=== PATIENT | female | born 1960 | race Caucasian/White ===

== ENCOUNTER 2017-12-21 16:53 | Emergency (ER) | payer MEDICAID ==
[~2017-12-21] VITALS: Ht 167.6 cm; Wt 106.1 kg
[~2017-12-21 16:53] MED LIST: CEL20 PO; GABA-529 PO; MORP30TA59 PO
[2017-12-21 17:07] VITALS: BP_SYST 115
[2017-12-21] MEDS ORDERED: BACITRACIN 1 GM OINT TP ONE ×2 (17:56→18:00)
[2017-12-21 18:10] VITALS: BP_SYST 115
== END 2017-12-21 18:10 | disposition home or self-care (01) ==
LOC: SED 16:53
DX: S70.922A Unspecified superficial injury of left thigh, initial encounter (principal); Z79.899 Other long term (current) drug therapy; X58.XXXA Exposure to other specified factors, initial encounter; Y93.89 Activity, other specified; Y92.89 Other specified places as the place of occurrence of the external cause; Y99.8 Other external cause status
CPT/HCPCS: 99283

== ENCOUNTER 2018-07-02 17:20 | Inpatient (IN) | payer MEDICAID ==
[~2018-07-02] VITALS: Ht 167.6 cm; Wt 106.6 kg
[2018-07-02 17:25] VITALS: BP_SYST 116
--- NOTE | 2018-07-02 17:44 | NUR ---
Patient to ER bed 7 to gown for evaluation. Side rails up.
--- NOTE | 2018-07-02 17:45 | NUR ---
Pt wheeled into ED with c/o bilateral LE pain. Pt lupus,RA,CHF and bilateral LE swelling. [facility] with moderate assist. Pt's bilateral LE are weeping with foul odor. Pt's LE were wrapping w/ diapers. All coverings were removed.
--- NOTE | 2018-07-02 17:49 | NUR ---
Left message with SW for f/u.
[2018-07-02] MEDS ORDERED: VANCOMYCIN HCL 1,000 MG in NS 250 ML IV ONE (19:00)
[2018-07-02 19:37] LABS: CALCIUM 8.4 mg/dL (8.4-11.0); CREATININE 1.5 mg/dL (0.55-1.30); POTASSIUM 4.4 mmol/L (3.5-5.1)
[2018-07-02] MEDS ORDERED: VANCOMYCIN HCL 1000 MG/VIAL IV ONE (19:37)
[2018-07-02 19:46] LABS: ALBUMIN 2.8 g/dL (3.4-4.8); TOTAL BILIRUBIN 0.4 mg/dL (0.0-1.0)
--- NOTE | 2018-07-02 19:47 | NUR ---
Resting. Stephen le erythematous, swollen, malodorous. Vancomycin 1000 mg ivpb hung per order.
[2018-07-02 20:09] LABS: HEMATOCRIT 41.2 % (36-48); HEMOGLOBIN 12.9 g/dL (12.0-16.0); MEAN CORPUSCULAR HEMOGLOBIN 30 pg (27-31); MEAN CORPUSCULAR HGB CONC 31 % (32-36); MEAN CORPUSCULAR VOLUME 96 fL (79.0-98.0); PLATELET COUNT (AUTO) 203 K/uL (130-430); RED BLOOD CELL COUNT(AUTO) 4.29 MIL/uL (4.2-6.2); RED CELL DISTRIBUTION WIDTH 14.1 % (9.0-15.0); WHITE BLOOD COUNT (AUTO) 10.4 K/uL (4.8-10.8)
[2018-07-02 20:10] LABS: BASOPHILS # (AUTO) 0.1 K/uL (0.0-0.2); BASOPHILS % (AUTO) 0.5 % (0.0-2.0); EOSINOPHILS # (AUTO) 0.8 K/uL (0.0-0.4); EOSINOPHILS % (AUTO) 7.3 % (0.0-4.0); LYMPHOCYTES # (AUTO) 0.7 K/uL (1.0-5.5); LYMPHOCYTES % (AUTO) 7.1 % (20.5-51.5); MONOCYTES # (AUTO) 0.6 K/uL (0.0-1.0); NEUTROPHILS # (AUTO) 8.2 K/uL (1.8-7.7); NEUTROPHILS % (AUTO) 79.1 % (40.0-70.0)
--- NOTE | 2018-07-02 21:00 | NUR ---
Pt resting. No distress noted. at bedside.
--- NOTE | 2018-07-02 22:00 | NUR ---
Reminded that we still needed a urine specimen for ua. pt attempted earlier x2 via bedpan and was not able to urinate. in and out catheterization was explained and offered, pt refused. pt is not able to walk to toilet, nor to stand up to use bedside commode. also pt states she has no urge to urinate at this time. Will try again later.
--- NOTE | 2018-07-02 23:00 | NUR ---
Patient will be admitted to care of Dr Hooks. Admitted to unit. Will go to room . Belongings list completed. Summary report printed. Report will be given at bedside to AUGUST Tse.
--- NOTE | 2018-07-02 23:03 | NUR ---
ADMIT NOTE Received pt from ER to the floor with a diagnosis of BILATERAL LOWER EXTREMITIY CELLULITIS. Admission process initiated. patient oriented to pain management, safety and call light-teach back done.
[2018-07-02 23:17] VITALS: BP_SYST 121
[2018-07-02] MEDS ORDERED: ALBUTEROL SULFATE 0.083% 2.5 MG/3 ML VIAL.NEB INH PRN (23:30)
--- NOTE | 2018-07-02 23:40 | NUR ---
Ambulation Pt ambulated to the restroom with a walker and had a bowel movement. Gait very slow, but steady.
--- NOTE | 2018-07-03 | NUR ---
Back to Bed Pt ambulated back to bed with a walker and no acute distress noted. Saline lock in LAC is without any signs of infiltration. Call light is with pt and bed alarm is on. Pt was instructed to call for assistance as needed and pt verbalized understanding.
[2018-07-03] MEDS ORDERED: PIPERACILLIN/TAZOBACTAM 3.375 GM/VIAL (ZOSYN) IV ONE (00:36)
[2018-07-03] MEDS: PIPERACILLIN/TAZO 3.375/DEX-IS 50 ML IV SCH ×3 (00:49→06:18)
--- NOTE | 2018-07-03 02:00 | NUR ---
Rounds Pt is sleeping comfortably in bed without any distress noted. Call light is with pt and bed alarm is on.
--- NOTE | 2018-07-03 03:11 | NUR ---
CONSULTATION PAGED/CALLED Reason for Consultation: NIRMALA WOOD Person Who was Notified:LINDA Consulting Physician: CLARIBEL Wrapping Machine Helper Specialty: ID Ordering Physician: MELISSA
[2018-07-03 03:53] VITALS: BP_SYST 121
--- NOTE | 2018-07-03 04:00 | NUR ---
Rounds Pt is sleeping quietly in bed. No acute distress noted. Call light is with pt and bed alarm is on.
--- NOTE | 2018-07-03 06:40 | NUR ---
Closing Note Pt is awake and resting quietly in bed. All pt's needs were attended to. No fall or injury noted this shift. Will endorse to day shift nurse.
[2018-07-03 07:02] LABS: BILIRUBIN,URINE NEGATIVE (NEGATIVE); CLARITY/URINE SLIGHTLY HAZY (CLEAR); COLOR,URINE YELLOW (YELLOW); GLUCOSE,URINE NEGATIVE (NEGATIVE); KETONES,URINE NEGATIVE (NEGATIVE); PH,URINE 5.5 (5.0-8.0); PROTEIN URINE 1+ (NEGATIVE)
[2018-07-03 07:03] LABS: BLOOD, URINE 2+ (NEGATIVE); LEUKOCYTE ESTERASE ,URINE NEGATIVE (NEGATIVE); NITRITE, URINE NEGATIVE (NEGATIVE); UROBILINOGEN,URINE 0.2 (0.2-1.0)
[2018-07-03 07:10] LABS: BASOPHILS % (AUTO) 0.3 % (0.0-2.0); MONOCYTES # (AUTO) 0.8 K/uL (0.0-1.0); RED BLOOD CELL COUNT(AUTO) 4.03 MIL/uL (4.2-6.2); RED CELL DISTRIBUTION WIDTH 14.3 % (9.0-15.0)
[2018-07-03 07:25] LABS: EOSINOPHILS # (AUTO) 0.4 K/uL (0.0-0.4); EOSINOPHILS % (AUTO) 3.6 % (0.0-4.0); HEMATOCRIT 38.7 % (36-48); HEMOGLOBIN 12.3 g/dL (12.0-16.0); LYMPHOCYTES # (AUTO) 0.6 K/uL (1.0-5.5); LYMPHOCYTES % (AUTO) 5.7 % (20.5-51.5); MEAN CORPUSCULAR HEMOGLOBIN 31 pg (27-31); MEAN CORPUSCULAR HGB CONC 32 % (32-36); MEAN CORPUSCULAR VOLUME 96 fL (79.0-98.0); MONOCYTES % (AUTO) 7.5 % (1.7-9.3); NEUTROPHILS # (AUTO) 8.7 K/uL (1.8-7.7); NEUTROPHILS % (AUTO) 82.9 % (40.0-70.0); WHITE BLOOD COUNT (AUTO) 10.5 K/uL (4.8-10.8)
[2018-07-03 07:32] LABS: ALBUMIN 2.3 g/dL (3.4-4.8); CALCIUM 8.3 mg/dL (8.4-11.0); CREATININE 1.39 mg/dL (0.55-1.30); POTASSIUM 4.1 mmol/L (3.5-5.1); TOTAL BILIRUBIN 0.3 mg/dL (0.0-1.0)
[2018-07-03 07:38] LABS: PLATELET COUNT (AUTO) 187 K/uL (130-430)
--- NOTE | 2018-07-03 07:40 | NUR ---
Opening Note: Patient laying in bed resting. Patient denies pain and discomfort. Breathing is even and unlabored with no distress noted. IV patent and intact. Bed in lowest position, wheels locked, side rails x3, bed alarm activated and call light within reach. Will continue to monitor.
[2018-07-03 08:00] LABS: BACTERIA,URINE MODERATE /HPF (None Seen); WBC,URINE 0-3 /HPF (0-3); YEAST,URINE None Seen /HPF (None Seen)
[2018-07-03 08:01] LABS: COARSE GRANULAR CASTS,URINE 0-10 /LPF (None Seen)
[2018-07-03 08:02] LABS: OTHER CASTS, URINE STARCH GRANULES /LPF (None Seen)
[2018-07-03 08:03] LABS: MUCUS,URINE None Seen /LPF (None Seen)
[2018-07-03 08:16] VITALS: BP_SYST 114
[2018-07-03] MEDS: GABAPENTIN 100 MG CAPSULE PO SCH ×2 (08:17→22:03)
[2018-07-03] MEDS: CITALOPRAM HYDROBROMIDE 20 MG TABLET PO SCH (08:19)
[2018-07-03] MEDS: MORPHINE SULFATE 30 MG TABLET.SA PO PRN ×2 (08:21→19:27)
[2018-07-03] MEDS ORDERED: ENOXAPARIN SODIUM 40 MG/0.4 ML SYRINGE SUBCUT SCH (09:00)
--- NOTE | 2018-07-03 10:06 | NUR ---
Rounding: Patient laying in bed resting. No distress noted. Will continue to monitor.
--- NOTE | 2018-07-03 12:35 | NUR ---
Rounding: Patient laying in bed resting. Patient denies pain and discomfort. Breathing is even and unlabored with no distress noted. Morning medications tolerated well. Safety precautions in place. No needs at this time. Will continue to monitor.
[2018-07-03 12:40] VITALS: BP_SYST 115
[2018-07-03] MEDS: FLUCONAZOLE 200 mg/ NS 100 ML IV SCH (12:49)
[2018-07-03] MEDS: ACETAMINOPHEN 325 MG TABLET PO PRN (12:54)
--- NOTE | 2018-07-03 13:45 | NUR ---
IV RE-INSERTION: Complaining of pain to IV site. Restarted on right forearm. Successful after 1 attempts. Will observe for any signs of infiltration.
[2018-07-03] MEDS: AMPICILLIN SODIUM/SULBACTAM NA 1.5 GM in NS 50 ML IV SCH ×3 (13:48→23:47)
[2018-07-03] MEDS ORDERED: BALSAM PERU/CASTOR OIL 60 GM OINT...G. TP ONE (16:00)
--- NOTE | 2018-07-03 16:03 | NUR ---
WOUND EVALUATION: Wound Consult received from Dr. Hooks. Thank you, Dr. Hooks, for the consult. Patient received in a Karla Bed with an IsoFlex EDA mattress, low air loss therapy was initiated awake, alert, and oriented. Patient is unable to turn independently. Rene Score is a 20. Past Medical History: Hypertension, CHF, hypothyroidism, severe arthritis, bilateral lower extremity cell is no ulitis for about five years. Recent Labs: WBC 10.5, RBC 4.03, hemoglobin 12.3, hematocrit 38.7, BUNs 18, creatinine 1.39, GFR 42, glucose 113, calcium 8.3, alkaline phosphatase 37, albumin 2.3. Microbiology: Wound culture results 2 in progress. Urine culture results in progress. Intrinsic factors that delay wound healing: Hypoalbuminemia. Extrinsic factors that delay wound healing: Decreased mobility. Wound Assessment: 1. Right lateral mid calf: Venous insufficiency ulcer, present on admission. Wound bed has 90% pink tissue, 10% yellow tissue. No odor, no drainage. Periwound and surrounding tissue is erythematous. Right calf and foot have 2+ nonpitting edema, erythema, and calor (entire extremity has calor). Wound measures 1.6 cm x 1.2 cm. 2. Left anterior distal uriostegui: Venous insufficiency ulcer, present on admission. Wound bed has 5% black tissue, 15% red tissue, 80% yellow tissue. No odor, no drainage. Periwound and surrounding tissue is erythematous. Wound measures 2.5 cm x 3.3 cm. 3. Left lateral distal lower extremity: Venous insufficiency ulcers (3), present on admission. Wound bed has 100% yellow tissue. No odor, no drainage. Periwound and surrounding tissue is erythematous. Left calf and foot have 3+ nonpitting edema, erythema, and calor (warmer than right lower extremity) (entire extremity has calor). Entire site measures 5.0 cm x 4.0 cm. 4. Left lateral dorsal foot: Two fissures, present on admission. Site has 100% yellow tissue in valleys of fissures. No odor, no drainage. Periwound and surrounding tissue is erythematous. Wound measures 5.0 cm x 4.0 cm. 5. Left dorsal foot: Venous insufficiency ulcer, present on admission. Wound bed has 5% black tissue, 95% yellow tissue. No odor, no drainage. Periwound and surrounding tissue is erythematous. Wound measures 2.0 cm x 5.2 cm. 6. Left medial malleolus: Venous insufficiency ulcer, present on admission. Wound bed has about 80% yellow tissue, 20% pink epidermal budding. No odor, no drainage. Periwound and surrounding tissue is erythematous. Wound measures 4.0 cm x 7.0 cm. Recommend: For Lower Extremities/Feet: Cleanse wounds with normal saline. Place moisture barrier cream onto silvana-wound. Apply Venelex ointment onto wound bed. Cover with nonadhesive foam dressing. Wrap with Kings wrap (not too loose, not tight). Perform wound care daily, and as needed for dressing soiling or dislodgement. For Toes: Cleanse in between toes with normal saline. Dry. Apply oil emotion dressings cut to size in between toes of right foot. Apply dry gauze in between toes of left foot. Perform site care daily, and as needed for dressing soiling or dislodgement. Also recommend: Encourage and assist patient as needed with repositioning every 2 hours with pillow support, and off-load pressure areas with pillows for pressure re-distribution. Offload, elevate and float bilateral heels with multiple pillows. Perform skin care and monitor skin integrity Q shift. Use moisture barrier cream on buttocks and other moisture susceptible areas QID and as needed for soiling. Maintain patient on low air-loss therapy. Recommend arterial and venous Dopplers to bilateral lower extremities with an PATEL to rule out arterial insufficiency, and confirmed venous insufficiency.
[2018-07-03 16:17] VITALS: BP_SYST 122
--- NOTE | 2018-07-03 16:29 | NUR ---
Wound care: Wound care one to bilateral lower extremities. Washed with normal saline. Patted dry. Applied Venelex to wound beds. Applied z-gaurd to periwound. Covered with no adherent foam and wrapped with Kings wrap. Also applied oil emulsion between toes to the right foot and gauze between toes to the left foot.
--- NOTE | 2018-07-03 18:29 | NUR ---
Closing Note: Patient laying in bed resting. Patient denies pain and discomfort. Breathing is even and unlabored with no distress noted. IV patent and intact. Bed in lowest position, wheels locked, side rails x3, bed alarm activated and call light within reach. All needs met. Will endorse plan of care to NOC, nurse.
--- NOTE | 2018-07-03 19:38 | NUR ---
Initial PM Note Pt is fully awake, alert and oriented x4. No acute distress noted at this time. Saline lock in LFA is without any signs of infiltration. Fall and safety precautions are in place. Pt was instructed to call for assistance as needed and pt verbalized understanding. Call light is with pt and bed alarm is on. Will continue to monitor pt.
[2018-07-03 20:00] VITALS: BP_SYST 120
[2018-07-03] MEDS ORDERED: COMMUNICATION ORDER XX ONE (21:15)
[2018-07-03] MEDS ORDERED: HYDROcodone/ACETAMIN 10-325 MG TAB PO SCH (21:30)
[2018-07-03] MEDS: ONDANSETRON HCL 4 MG/2 ML VIAL IVP PRN (22:03)
--- NOTE | 2018-07-03 22:03 | NUR ---
Pain/Nausea Pt stated she has kidney stones on the right and the pain is making her nauseated. Pt stated MS Contin tablet is not effective for the pain. [place] 10/325 1 tablet po and Zofran 4mg IV were given as ordered by Dr. Hooks with relief. No emesis noted. Fall and safety precautions are in place.
--- NOTE | 2018-07-04 | NUR ---
Rounds Pt is resting comfortably in bed. Call light is with pt and bed alarm is on.
[2018-07-04 00:38] VITALS: BP_SYST 137
--- NOTE | 2018-07-04 02:00 | NUR ---
Rounds Pt is sleeping comfortably in bed without any distress noted. Call light is with pt and bed alarm is on.
--- NOTE | 2018-07-04 04:00 | NUR ---
Rounds Pt continues to sleep without any distress noted. Saline lock is intact in left forearm. Call light is with pt and bed alarm is on.
[2018-07-04] MEDS: AMPICILLIN SODIUM/SULBACTAM NA 1.5 GM in NS 50 ML IV SCH ×4 (06:12→23:42)
--- NOTE | 2018-07-04 06:30 | NUR ---
Closing Note Pt is awake and resting quietly in bed. All pt's needs were attended to. No fall or injury noted this shift. Saline lock in LFA is without any signs of infiltration. Dressings are intact on BLE. Will endorse to day shift nurse.
[2018-07-04 08:00] VITALS: BP_SYST 123; BP_SYST 130
--- NOTE | 2018-07-04 08:15 | NUR ---
OPENING NOTE: MORNING REPORT WAS TAKEN FROM ADULT EDUCATION TEACHER NURSE. PATIENT SITTING IN BED WATCHING TV. PATIENT IS ALERT AND ORIENTED X4. PATIENT COMPLAINING OF NAUSEA. PATIENT NOT VOMITING. PATIENT NOT COMPLAINING OF SHORTNESS OF BREATH. PATIENT ON ROOM AIR. PATIENT NOT COMPLAINING OF CONSTIPATION. GAVE PATIENT MORNING MEDICATIONS ALONG WITH ZOFRAN. PATIENT'S DRESSINGS ARE INTACT. PATIENT ABLE TO MOVE TOES, CAP REFIL <3 SEC, PULSES PRESENT. BED ALARM IS ON AND CALL LIGHT IS IN REACH. WILL CONTINUE TO MONITOR.
[2018-07-04] MEDS: CITALOPRAM HYDROBROMIDE 20 MG TABLET PO SCH (08:28)
[2018-07-04] MEDS: ONDANSETRON HCL 4 MG/2 ML VIAL IVP PRN (08:28)
[2018-07-04] MEDS: GABAPENTIN 100 MG CAPSULE PO SCH ×2 (08:28→20:45)
--- NOTE | 2018-07-04 09:38 | NUR ---
Nutrition Update Rene Scale 18 noted. Pt admitted for bilateral lower leg cellulitis. Diet: regular BMI: 37.9 kg/m2 RD to follow per nutrition care standards.
[2018-07-04] MEDS: FLUCONAZOLE 200 mg/ NS 100 ML IV SCH (11:26)
[2018-07-04] MEDS: ACETAMINOPHEN 325 MG TABLET PO PRN (11:27)
--- NOTE | 2018-07-04 11:40 | NUR ---
NOTE: [facility] ANTIBIOTICS FOR PATIENT. PATIENT COMPLAINING OF PAIN IN LEFT ABD, "KIDNEY STONES" PATIENT SAYS. GAVE TYLENOL. VISITOR AT BEDSIDE. PATIENT COMPLAINING OF NAUSEA. ZOFRAN NOT DUE YET. WILL GET GINGERALE FOR PATIENT.
[2018-07-04 12:00] VITALS: BP_SYST 127
[2018-07-04] MEDS: MORPHINE SULFATE 30 MG TABLET.SA PO PRN ×2 (13:18→20:46)
--- NOTE | 2018-07-04 14:06 | NUR ---
ATTENDING MD DR GOETZ WAS PAGED, RE: PAIN MED FOR LEG PAIN. SPOKE TO JED
--- NOTE | 2018-07-04 14:34 | NUR ---
DR GOETZ HERE. ASKED FOR PAIN MEDICATION FOR PATIENT. SAID SERGEY [id number] SAID HE WOULD PUT IT IN.
--- NOTE | 2018-07-04 15:09 | NUR ---
ATTENDING MD DR GOETZ WAS PAGED AGAIN, RE: LEG PAIN MED. SPOKE TO FELA
--- NOTE | 2018-07-04 15:10 | NUR ---
DR GOETZ CALLED BACK AND ORDERED NORCO 5-325 Q6 PRN FOR PATIENT.
[2018-07-04] MEDS ORDERED: HYDROcodone/ACETAMIN 5-325 MG TAB (NORCO/ VICODIN) PO PRN (15:15)
--- NOTE | 2018-07-04 15:23 | NUR ---
Dietitian Recommendations * Recommend cardiac diet, no lactose, Glucerna BID, Rudy BID (oral supplements provide an additional 620 kcal/day and 25 gm protein/day) AFIA, RD Please refer to Nutrition Assessment for details. Addendum: 07/04/18 at [address] CORRECTION: Dietitian Recommendations * Recommend cardiac diet, no lactose, Ensure Enlive BID, Rudy BID (oral supplements provide an additional 880 kcal/day and 45 gm protein/day) LP, RD
[2018-07-04] MEDS: BALSAM PERU/CASTOR OIL 60 GM OINT...G. TP SCH (16:37)
[2018-07-04 16:52] VITALS: BP_SYST 105
--- NOTE | 2018-07-04 17:05 | NUR ---
MD CALLED CALLED DR GOETZ FOR ECHO ORDER BECAUSE PT DID NOT HAVE ANY ECHOCARDIOGRAM IN LAST12 MONTH PER PT.RECEIVED ORDER . CARRIED OUT
--- NOTE | 2018-07-04 17:22 | NUR ---
JUST FINISHED DOING WOUND CARE FOR PATIENT. CLEANED ALL WOUNDS WITH NS AND PADDED DRY. APPLIED VENELEX TO WOUND BED. APPLIED MOISTURE BARRIER CREAM AROUND. APPLIED NON ADHERENT DRESSING AND WRAPPED. APPLIED GAUZE IN BETWEEN TOES ON LEFT AND OIL EVERSION DRESSING BETWEEN TOES ON RIGHT. TRIED TO GET PATIENT TO TURN ON SIDE BUT PATIENT REFUSED. ASKED IF HER BUTT FEELS NUMB OR TINGLING AND SAID NO.
--- NOTE | 2018-07-04 18:55 | NUR ---
CLOSING NOTE: PATIENT SITTING IN BED TALKING TO VISITOR AT BEDSIDE. PATIENT SAID HER PAIN IS DOING BETTER. [facility]G ANTIBIOTICS. PATIENT IS ON ROOM AIR NOT COMPLAINING OF SHORTNESS OF BREATH. DRESSINGS ARE INTACT. LEGS ARE ELEVATED. BED ALARM IS ON AND CALL LIGHT IS IN REACH. WILL CONTINUE TO MONITOR AND GIVE REPORT TO NIGHT NURSE.
--- NOTE | 2018-07-04 19:50 | NUR ---
Initial Note Received patient awake, alert and oriented with caregiver at the bedside. No SOB noted. Denies any n/v or chest pain at this time. Feels pain on her BLE and will need pain medication later. Patient has scoliosis and she tends to flex her neck forward all the time. Had a BM yesterday. Dressing on BLE CDI. Saline lock patent and intact. Patient able to walk with a walker and assist. Blood thinner on hold. Care and monitoring will be provided per protocol. Needs attended. Call light within reach. Bed alarm on and at lowest position at all times. Kept warm and comfortable.
[2018-07-04 20:00] VITALS: BP_SYST 99
--- NOTE | 2018-07-04 20:45 | NUR ---
RN Note Due meds given along with pain medication as requested. Will continue to monitor. Needs attended. Kept warm and comfortable.
--- NOTE | 2018-07-04 23:30 | NUR ---
RN Note Sleeping but easily arousable. No complaints at this time. Repositioned. IV antibiotic given. Kept warm and comfortable.
[2018-07-05] VITALS: BP_SYST 119
--- NOTE | 2018-07-05 02:00 | NUR ---
RN Note Asleep, moves occasionally. No distress noted.
--- NOTE | 2018-07-05 04:00 | NUR ---
RN Note Patient awake and alert. Assisted patient to the bathroom with a walker. Slow but steady gait. Feels pain when she put weight on her left leg. Reinforced dressing on BLE. Bed alarm turned on. LALM. Kept warm and comfortable.
[2018-07-05] MEDS: AMPICILLIN SODIUM/SULBACTAM NA 1.5 GM in NS 50 ML IV SCH ×4 (05:05→23:37)
[2018-07-05] MEDS: MORPHINE SULFATE 30 MG TABLET.SA PO PRN ×2 (05:10→14:48)
--- NOTE | 2018-07-05 06:15 | NUR ---
End Note Afebrile. VS stable. No changes from previous assessment. Denies any SOB or n/v throughout the night. Medicated for BLE pain twice all night. Able to sleep last night. Assisted to the bathroom with a walker with a steady gait. IV antibiotic given. For 2D Echo today. Dressing on BLE CDI. Fall and bleeding precaution observed. Needs attended. Care and monitoring provided per protocol. Call light within reach. Bed alarm on and at lowest position at all times. Kept warm and comfortable.
--- NOTE | 2018-07-05 07:55 | NUR ---
OPENING NOTE: MORNING REPORT WAS TAKEN FROM LIBRARIAN SPECIAL COLLECTIONS NURSE. PATIENT SITTING IN BED EATING BREAKFAST. PATIENT IS ALERT AND ORIENTED X4. PATIENT NOT COMPLAINING OF NAUSEA OR VOMITING. PATIENT NOT COMPLAINING OF SHORTNESS OF BREATH. PATIENT ON ROOM AIR. PATIENT NOT COMPLAINING OF CONSTIPATION. IV IS SALINE LOCKED. PATIENT'S DRESSINGS ARE INTACT. PATIENT ABLE TO MOVE TOES, CAP REFIL <3 SEC, ABLE TO FEEL TOUCH, PULSES PRESENT BUT FAINT. BED ALARM IS ON AND CALL LIGHT IS IN REACH. WILL CONTINUE TO MONITOR.
[2018-07-05 08:00] VITALS: BP_SYST 104
[2018-07-05 08:10] VITALS: BP_SYST 119
[2018-07-05] MEDS: GABAPENTIN 100 MG CAPSULE PO SCH ×2 (09:12→20:57)
[2018-07-05] MEDS: CITALOPRAM HYDROBROMIDE 20 MG TABLET PO SCH (09:12)
[2018-07-05] MEDS: FLUCONAZOLE 200 mg/ NS 100 ML IV SCH (09:13)
--- NOTE | 2018-07-05 10:40 | NUR ---
WENT TO CHECK IN ON PATIENT BECAUSE SHE CALLED. PATIENT STARTED CRYING SAYING SHE DIDNT WANT TO GO TO SNF BECAUSE THAT WHAT THE DR TOLD HER SHE WAS GOING TO GO. PATIENT SAID SHE IS AFRAID OF THEM. TRIED TO COMFORT PATIENT. WILL FOLLOW UP WITH DR TO SEE WHAT HIS PLAN IS FOR PATIENT.
--- NOTE | 2018-07-05 11:44 | NUR ---
CM DC Planning: Noted Nsg note regarding patient being tearful about transfer to SNF. Spoke with nurse/Cielo about frequency of abx; reviewed Dr. Gatica/ID note about duration of IV abx who documented Pt able to transition to PO abx, Augmentin & Diflucan; today is day 3 of IV abx, unable to have q 6 hr IV abx at home with PIV; CM and/vendor relationship manager/Cielo to f/up with Dr. Gatica regarding duration of IV antibiotic. Spoke with patient about DC to SNF concerns. Pt stated her boyfriend is [employer] worker and will help with wound care at home. Pt educated about IV abx and, that CM and/vendor relationship manager will f/up with ID /Dr. Gatica about duration of IV Unysyn. Pt stated if SNF could be located near her home, she would be willing to stay for 2-4 days per ID recommendations. Late Entry for 11 a.m.: FITO left message for Deepak Beavers CM/Kathy: [phone] regarding status of SNF placement.] FITO will f/up with Kathy regarding above IV abx duration and possibility of Pt DC to home with HH request. FITO will call back to Kathy or other ins CM if no call back by 1300 to 1400.
[2018-07-05 12:26] VITALS: BP_SYST 101
--- NOTE | 2018-07-05 12:44 | NUR ---
DISCONNECTED PATIENT FROM ANTIBIOTICS. PATIENT DIDNT WANT TO BE TURNED AT MOMENT BECAUSE SON AT BEDSIDE. WILL CONTINUE TO MONITOR.
--- NOTE | 2018-07-05 15:23 | NUR ---
CHF PROTOCOL PCP APPOINTMENT PRIOR TO DISCHARGE POSSIBLE DISCHARGE TODAY, MADE APPOINTMENT TO SEE DR WATTS PCP OF PATIENT WITHIN 7 DAYS PRIOR TO DISCHARGE, SPOKE TO EPIFANIO AT DR WATTS'S OFFICE, PATIENT APPOINTMENT WILL BE ON JULY 12, 2018 AT 10;30 AM. OFFICE IS LOCATED AT [address] [place] [address], [address] PATIENT MADE AWARE.
--- NOTE | 2018-07-05 15:41 | NUR ---
PAGED DR. SANFORD AND HE CALLED BACK. SAID PATIENT CAN LEAVE HOME ON PO AUGMENTIN AND DIFLUCAN ANTIBIOTICS FOR 7 DAYS.
[2018-07-05 16:46] VITALS: BP_SYST 97
--- NOTE | 2018-07-05 16:52 | NUR ---
OFFERED PATIENT A BED BATH PATIENT REFUSED PATIENT STATED THAT SHE DID NOT WONT A BATHE AND SHE WAS A LITTLE TRIED .INFORMED PATIENT TO LET US KNOW WHEN SHE WAS READY TO BATHE .OFFERED PATIENT AGAIN THROUGHOUT SHIFT PATIENT CONTINUED TO REFUSED .RN NOTIFIED
--- NOTE | 2018-07-05 17:51 | NUR ---
MD JONES CALLED [facility] AT SPOKE WITH DR.JANDIAL DACOSTA RAJNISH MEDICARE SPECIALIST.
--- NOTE | 2018-07-05 18:07 | NUR ---
SPOKE TO DR. SMILEY. TOLD DR THAT DR GOETZ ORDERED DC TO SNF BUT DOESNT WANT TO GO. DR SANFORD SAID OKAY TO BE DC PO ANTIBIOTICS BUT NEED PRESCRIPTION. ALSO THAT PATIENT HAD NAUSEA, VOMITING, AND ABDOMINAL PAIN WHEN ADMITTED. DR SAID PATIENT NOT GOING HOME TODAY. DR ORDERED GI CONSULT WITH DR KOLB. SAID PATIENT ANXIOUS AND ASKED FOR XANAX. DR ORDERED 0.25 MG Q8H PRN.
[2018-07-05] MEDS ORDERED: ALPRAZolam 0.25 MG TABLET PO PRN (18:15)
--- NOTE | 2018-07-05 18:18 | NUR ---
CONSULTATION CALLED REASON FOR CONSULTATION:ABDOMINAL PAIN WAS CONSULT CALLED?Y PERSON WHO WAS NOTIFIED:PRANEETH CONSULTING PHYSICIAN:NICOLE DEL CID (USMAN ROE SPEECH PATHOLOGIST) AIRPORT OPERATIONS CREW MEMBER SPECIALTY:GI AIRPORT OPERATIONS CREW MEMBER PHONE NUMBER:[phone] ORDERING PHYSICIAN:BK VILLANUEVA
[2018-07-05] MEDS ORDERED: ALPRAZolam 0.25 MG TABLET ONE (18:44)
--- NOTE | 2018-07-05 18:54 | NUR ---
CLOSING NOTE: PATIENT STILL SITTING IN CHAIR AT SIDE OF BED. UPDATED PATIENT AND BOYFRIEND ON PLAN OF CARE. PATIENT GOT A LITTLE SAD AND MORE ANXIOUS BECAUSE SHE HAD TO STAY AFTER ALL. GAVE PATIENT XANAX BECAUSE SHE SAID SHE REALLY NEEDED IT NOW. GOT PATIENT BLANKETS FOR BED. WILL CONTINUE TO MONITOR AND GIVE REPORT TO SHAFT REPAIRER NURSE. Addendum: 07/05/18 at 1906 by Cielo Leiva RN DID NOT HAVE TIME TO DO WOUND DRESSINGS DURING SHIFT. ENDORSED TO NIGHT NURSE TO DO.
--- NOTE | 2018-07-05 19:05 | NUR ---
OPENING NOTES RECEIVED PATIENT SITTING IN CHAIR. AAO X4. DENIES PAIN AT THIS TIME. BREATHING UNLABORED ON ROOM AIR. PLAN OF CARE REVIEWED WITH PATIENT. INSTRUCTED PATIENT TO USE CALL LIGHT IF SHE IS READY TO GO BACK TO BED. PLACED CALL LIGHT WITHIN EASY REACH.
--- NOTE | 2018-07-05 20:34 | NUR ---
BACK TO BED PATIENT ASSISTED BY RN AND OIL LEASE OPERATOR SAFELY BACK TO BED. PLACED CALL LIGHT WITHIN EASY REACH. CALL LIGHT WITHIN REACH. SIDERAILS UP X2. BED IN LOWEST LOCKED POSITION.
--- NOTE | 2018-07-05 20:58 | NUR ---
MED PASS DUE MEDICATION GIVEN AND TOLERATED.
--- NOTE | 2018-07-05 22:40 | NUR ---
WOUND CARE WOUND CARE DONE ORDERED. DRESSING CHANGED TO JONA LEG WOUND
[2018-07-05 23:00] VITALS: BP_SYST 104
--- NOTE | 2018-07-05 23:16 | NUR ---
CLOSING NOTES ENDORSED PATIENT CARE TO CHEL KOCH.
--- NOTE | 2018-07-05 23:25 | NUR ---
[place] of care: Received handoff report from AUGUST Kuhn. Patient is awake in bed, does not show any signs or symptoms of acute distress. Dressings to both legs noted. IV noted to patient's left arm, site is patent and benign. Safety and fall precautions in place. Will continue monitoring.
--- NOTE | 2018-07-06 00:03 | NUR ---
Rounds: Patient is sleeping, no acute distress noted. Safety and fall precautions in place. Will continue monitoring.
--- NOTE | 2018-07-06 02:09 | NUR ---
Rounds: Patient is in bed asleep, no signs or symptoms of acute distress noted. Safety and fall precautions in place. Call light remains with patient. Will continue to monitor.
--- NOTE | 2018-07-06 05:00 | NUR ---
ASSUMPTION OF CARE PATIENT RECEIVED FROM AUGUST MILLIGAN AT THIS TIME, REPORT GIVEN AT BEDSIDE. AT THIS TIME, PATIENT IS SLEEPING, STABLE, NO SIGNS OF ACUTE DISTRESS. CALL LIGHT IS WITHIN REACH. BED IS LOCKED, ALARMED, AND AT THE LOWEST LEVEL. FALL AND SAFETY PRECAUTIONS ARE IN PLACE. WILL CONTINUE TO MONITOR FOR CHANGES.
[2018-07-06] MEDS: AMPICILLIN SODIUM/SULBACTAM NA 1.5 GM in NS 50 ML IV SCH ×2 (06:43→11:41)
--- NOTE | 2018-07-06 06:46 | NUR ---
CLOSING NOTE AT THIS TIME, PATIENT IS RESTING IN BED, STABLE, NO SIGNS OF RESPIRATORY DISTRESS. CALL LIGHT WITHIN REACH. PATIENT VERBALIZES NO PAIN. FALL AND SAFETY PRECAUTIONS ARE IN PLACE. BED IS LOCKED, ALARMED, AND AT THE LOWEST LEVEL. WILL CONTINUE TO MONITOR UNTIL SHIFT REPORT IS GIVEN AT BEDSIDE TO AM NURSE.
--- NOTE | 2018-07-06 07:40 | NUR ---
Opening Note: Patient laying in bed resting. Patient denies pain and discomfort. Breathing is even and unlabored with no distress noted. IV patent and intact. Patient complains of diarrhea. Will inform MD. Safety precautions in place; bed in lowest position, wheels locked, side rails x3, bed alarm activated and call light within reach. Will continue to monitor.
[2018-07-06 08:00] VITALS: BP_SYST 106
[2018-07-06] MEDS: FLUCONAZOLE 200 mg/ NS 100 ML IV SCH (08:14)
[2018-07-06] MEDS: CITALOPRAM HYDROBROMIDE 20 MG TABLET PO SCH (08:14)
[2018-07-06] MEDS: GABAPENTIN 100 MG CAPSULE PO SCH (08:15)
[2018-07-06] MEDS: BALSAM PERU/CASTOR OIL 60 GM OINT...G. TP SCH (08:16)
[2018-07-06] MEDS ORDERED: PANTOPRAZOLE SODIUM 40 MG TAB PO ONE (09:45)
[2018-07-06] MEDS ORDERED: LACTOBACILLUS RHAMNOSUS GG 1 CAP CAPSULE PO ONE (09:45)
[2018-07-06] MEDS: MORPHINE SULFATE 30 MG TABLET.SA PO PRN (10:11)
--- NOTE | 2018-07-06 10:12 | NUR ---
Rounds: Pt sitting up in bed. PRN MS Contin given for severe pain. New order for Culturelle and Protonix given per MD order, see EMR. Bed rails up, call light in reach.
[2018-07-06 11:35] VITALS: BP_SYST 119
--- NOTE | 2018-07-06 12:13 | NUR ---
Rounds: Patient laying in bed resting. Patient denies pain and discomfort. Breathing is even and unlabored with no distress noted. Morning medications tolerated well. Safety precautions in place and call light within reach. No needs at this time. Will continue to monitor.
[2018-07-06] MEDS ORDERED: DIF100 PO (14:09)
[2018-07-06] MEDS ORDERED: AMOX-423 PO (14:09)
[2018-07-06] MEDS ORDERED: ONDA4TAB5 SL (14:10)
[2018-07-06 14:18] VITALS: BP_SYST 119
--- NOTE | 2018-07-06 14:30 | NUR ---
Wound care: Wound care done to bilateral lower extremities per wound care guidelines. Patient tolerated well.
--- NOTE | 2018-07-06 15:15 | NUR ---
D/C Patient Patient given medication reconciliation form and D/C instructions. Exit Care provided. Patient verbalized understanding. MD discussed with patient the results and treatment provided. Patient in stable condition, ID band removed. IV catheter removed, intact and dressing applied, no active bleeding. Rx of meds given. Patient educated on pain management. All belongings sent with patient.
--- NOTE | 2018-07-06 16:21 | NUR ---
CM DC PLANNING: Approx 1300: Call to Marivel PAYTON/Allie at [phone] who was not available; left message to call this CM back to discuss HH needs and obtain fax number for orders and med records as Pt is to DC home today. 1540: Received message from Allie with to send MD order and pertinent med records which were faxed at 1620. 1620: Called back to Allie to request she notify this CM before 5 p.m. of HH name and contact number for patient notification as patient left hospital already. Allie not available; left message regarding info requested to notify patient; and, if not able to call this CM before 5-5:30 p.m., requested that Allie notify patient of HH agency name and contact number. Also, this CM informed Allie that patient's boyfriend works for [employer] as a caregiver; and, would be able to assist with dressing changes with HH nurse f/up to ensure and document healing progress or have patient f/up with her PMD.
[2018-07-06] MEDS ORDERED: LACTOBACILLUS RHAMNOSUS GG 1 CAP CAPSULE PO SCH (18:30)
[2018-07-07] MEDS ORDERED: PANTOPRAZOLE SODIUM 40 MG TAB PO SCH (06:00)
[2018-07-07] MEDS ORDERED: FLUCONAZOLE 200 MG TABLET (DIFLUCAN) PO SCH (09:00)
--- NOTE | 2018-07-08 14:59 | NUR ---
[facility] Follow-up Called to and spoke with Marivel Rojas and learned that HH services were arranged by health plan on 07/06/18 with [facility]: [phone].
== END 2018-07-06 15:15 | disposition home health service (06) | DRG 383 ==
LOC: SED 17:20 → SMU 22:46
PROVIDERS: ADMIT Internal Medicine; ATTEND Internal Medicine
DX: L03.115 Cellulitis of right lower limb (principal); E43 Unspecified severe protein-calorie malnutrition; I13.0 Hypertensive heart and chronic kidney disease with heart failure and stage 1 through stage 4 chronic kidney disease, or unspecified chronic kidney disease; R65.10 Systemic inflammatory response syndrome (SIRS) of non-infectious origin without acute organ dysfunction; I50.9 Heart failure, unspecified; E66.01 Morbid (severe) obesity due to excess calories; M41.9 Scoliosis, unspecified; L03.116 Cellulitis of left lower limb; E03.9 Hypothyroidism, unspecified; N18.9 Chronic kidney disease, unspecified; G89.29 Other chronic pain; M19.90 Unspecified osteoarthritis, unspecified site; B36.9 Superficial mycosis, unspecified; I89.0 Lymphedema, not elsewhere classified; Z82.49 Family history of ischemic heart disease and other diseases of the circulatory system; Z68.37 Body mass index [BMI] 37.0-37.9, adult; Z88.2 Allergy status to sulfonamides; Z91.011 Allergy to milk products; Z79.899 Other long term (current) drug therapy
CPT/HCPCS: 36415; 71045; 80053; 81000-TC; 83605; 83880; 84484; 85025; 87040-TC; 87086; 90656; 93005; 93306; 96365; 96366; 99285; J0295; J1450; J1650; J2274; J2405; J2543; J3370; J7050